=== PATIENT | female | born 1940 | race Two or more races ===

== ENCOUNTER 2018-08-13 10:54 | Outpatient (CLI) | payer OTHER | END 2018-08-13 11:02 | disposition home or self-care (01) | LOC: NUCLEAR 10:54 | DX: M81.0 Age-related osteoporosis without current pathological fracture (principal) ==

== ENCOUNTER 2021-04-10 13:32 | Outpatient (CLI) | payer OTHER | END 2021-04-10 13:34 | disposition home or self-care (01) | LOC: NUCLEAR 13:32 | PROVIDERS: ATTEND General Practice | DX: M81.0 Age-related osteoporosis without current pathological fracture (principal) ==

== ENCOUNTER 2023-07-01 12:46 | Outpatient (CLI) | payer OTHER | END 2023-07-01 12:48 | disposition home or self-care (01) | LOC: NUCLEAR 12:46 | PROVIDERS: ATTEND Family Medicine | DX: M81.0 Age-related osteoporosis without current pathological fracture (principal) ==